=== PATIENT | male | born 1965 | race Caucasian/White ===

== ENCOUNTER 2020-11-12 15:47 | Emergency (ER) | payer OTHER ==
[~2020-11-12] VITALS: Ht 172.7 cm; Wt 95.5 kg
[2020-11-12] MEDS ORDERED: LORazepam 1 MG TABLET PO ONE (16:30)
[2020-11-12] MEDS ORDERED: HALOPERIDOL 5 MG TABLET PO ONE (16:30)
[2020-11-12 17:06] LABS: EOSINOPHILS % (AUTO) 0.4 % (1.0-6.0); HEMATOCRIT 38.7 % (41-53); HEMOGLOBIN 12.7 g/dL (13.5-17.5); LYMPHOCYTES # (AUTO) 2.2 K/uL (1.0-4.8); LYMPHOCYTES % (AUTO) 26.5 % (22.0-44.0); MEAN CORPUSCULAR HEMOGLOBIN 29.4 pg (26.0-34.0); MEAN CORPUSCULAR HGB CONC 32.7 G/dL (31.0-37.0); MEAN CORPUSCULAR VOLUME 90 fL (80-100); MONOCYTES # (AUTO) 0.8 K/uL (0.1-1.0); MONOCYTES % (AUTO) 9.3 % (2.0-9.0); NEUTROPHILS # (AUTO) 5.2 K/uL (1.8-7.7); NEUTROPHILS % (AUTO) 62.8 % (40.0-70.0); PLATELET COUNT (AUTO) 252 K/uL (150-450); RED CELL DISTRIBUTION WIDTH 13.9 % (11.5-14.5)
[2020-11-12 17:15] LABS: ANION GAP 11 mmol/L (8-16); CALCIUM, TOTAL 8.8 mg/dL (8.8-10.5); CARBON DIOXIDE 27 mmol/L (22-29); CHLORIDE 103 mmol/L (98-107); GLOMERULAR FILTR. RATE CALC > 60 mL/min (>60); GLUCOSE,RANDOM 99 mg/dL (70-110); POTASSIUM 3.6 mmol/L (3.5-5.1); SODIUM SERUM 141 mmol/L (136-145); UREA NITROGEN, BLOOD 25 mg/dL (7-18)
[2020-11-12 17:22] LABS: ALANINE AMINOTRANSFERASE 246 U/L (12-78); ALBUMIN 4.1 g/dL (3.4-5.0); ALKALINE PHOSPHATASE 67 U/L (46-116); ASPARTATE AMINOTRANSFERASE 479 U/L (15-37); BILIRUBIN,TOTAL 1.6 mg/dL (0.1-1.0); TOTAL PROTEIN, SERUM 7.3 g/dL (6.4-8.2)
[2020-11-12 18:56] VITALS: BP 128/70
== END 2020-11-12 19:24 | disposition home or self-care (01) ==
LOC: EMS 15:47
DX: F41.9 Anxiety disorder, unspecified (principal); R44.0 Auditory hallucinations; F32.9 Major depressive disorder, single episode, unspecified; F17.210 Nicotine dependence, cigarettes, uncomplicated; F12.90 Cannabis use, unspecified, uncomplicated; F19.90 Other psychoactive substance use, unspecified, uncomplicated
CPT/HCPCS: 36415; 80053; 85025; 99283; G0480

== ENCOUNTER 2020-12-15 22:56 | Emergency (ER) | payer MEDICAID ==
[~2020-12-15] VITALS: Ht 167.6 cm; Wt 90.9 kg
[2020-12-16] MEDS ORDERED: ARIP2 PO (00:08)
[2020-12-16] MEDS ORDERED: QUET25TA PO (00:10)
[2020-12-16 00:12] LABS: BASOPHILS % (AUTO) 0.8 % (0.0-2.0); EOSINOPHILS % (AUTO) 0.4 % (1.0-6.0); HEMATOCRIT 36.8 % (41-53); HEMOGLOBIN 12.3 g/dL (13.5-17.5); LYMPHOCYTES # (AUTO) 1.9 K/uL (1.0-4.8); LYMPHOCYTES % (AUTO) 17.6 % (22.0-44.0); MEAN CORPUSCULAR HEMOGLOBIN 29.3 pg (26.0-34.0); MEAN CORPUSCULAR HGB CONC 33.4 G/dL (31.0-37.0); MEAN CORPUSCULAR VOLUME 88 fL (80-100); MONOCYTES % (AUTO) 9.2 % (2.0-9.0); NEUTROPHILS # (AUTO) 7.6 K/uL (1.8-7.7); PLATELET COUNT (AUTO) 234 K/uL (150-450); RED CELL DISTRIBUTION WIDTH 13.9 % (11.5-14.5)
[2020-12-16 00:17] LABS: COVID AG,FIA SOURCE NASOPHARYNGEAL
[2020-12-16 00:25] LABS: ANION GAP 15 mmol/L (8-16); CALCIUM, TOTAL 8.5 mg/dL (8.8-10.5); CARBON DIOXIDE 26 mmol/L (22-29); CHLORIDE 100 mmol/L (98-107); GLOMERULAR FILTR. RATE CALC > 60 mL/min (>60); GLUCOSE,RANDOM 83 mg/dL (70-110); POTASSIUM 3.4 mmol/L (3.5-5.1); SODIUM SERUM 141 mmol/L (136-145); UREA NITROGEN, BLOOD 23 mg/dL (7-18)
[2020-12-16 00:30] LABS: ALANINE AMINOTRANSFERASE 220 U/L (12-78); ALBUMIN 4.3 g/dL (3.4-5.0); ALKALINE PHOSPHATASE 74 U/L (46-116); ASPARTATE AMINOTRANSFERASE 424 U/L (15-37); BILIRUBIN,TOTAL 1.5 mg/dL (0.1-1.0); TOTAL PROTEIN, SERUM 7.9 g/dL (6.4-8.2)
[2020-12-16] MEDS ORDERED: LORazepam 1 MG TABLET PO ONE (01:00)
[2020-12-16] MEDS ORDERED: ACETAMINOPHEN 500 MG TABLET PO ONE (01:00)
[2020-12-16] MEDS ORDERED: ONDANSETRON HCL 4 MG TABLET PO ONE (01:00)
[2020-12-16 02:30] VITALS: BP 129/83
== END 2020-12-16 03:38 | disposition home or self-care (01) ==
LOC: EMS 22:58
DX: F15.10 Other stimulant abuse, uncomplicated (principal); F17.210 Nicotine dependence, cigarettes, uncomplicated; F12.90 Cannabis use, unspecified, uncomplicated; F32.9 Major depressive disorder, single episode, unspecified; F41.9 Anxiety disorder, unspecified; Z88.0 Allergy status to penicillin; Z79.899 Other long term (current) drug therapy; Z20.822 Contact with and (suspected) exposure to COVID-19
CPT/HCPCS: 80053; 85025; 87426; 99284; G0480; Q0162